=== PATIENT | female | born 1990 | race Caucasian/White ===

== ENCOUNTER 2022-11-21 19:38 | Emergency (ER) | payer OTHER ==
[2022-11-21] MEDS ORDERED: NA CHLORIDE 0.9% 2,000 ML ONE (22:04)
[2022-11-21] MEDS ORDERED: PROMETHAZINE INJ 25 MG/ML AMP ONE (22:04)
[2022-11-21 22:17] LABS: Urine Blood Negative (Negative); Urine Glucose Negative (Negative); Urine Protein 1+ (Negative); Urine Specific Gravity >=1.030 (1.005-1.030)
[2022-11-21 22:39] LABS: Absolute Lymphocytes (CBC) 2.4 K/uL (0.7-4.9); Hematocrit 37.2 % (36.0-45.0); Lymphocytes % 19.6 % (15.3-44.8); MCV 87.5 fL (80-100); MPV 9.6 fL (7.6-11.3); RBC Red Blood Cell Count 4.25 M/uL (3.86-4.86)
[2022-11-21 22:48] LABS: Potassium 3.6 mmol/L (3.5-5.1)
[2022-11-21 23:28] LABS: Urine Specific Gravity/Preg >1.030 (1.005-1.030)
--- NOTE | 2022-11-22 01:24 | ER ---
Nurse's Notes [facility] Name: Keily Franz Age: 32 yrs Sex: Female : 1990 Arrival Date: 11/21/2022 Time: 19:40 Bed Treatment Private MD: Diagnosis: Volume depletion, unspecified;Nausea with vomiting, unspecified Presentation: 11/21 21:15 Chief complaint: Patient states: she is 19 weeks and has been vomiting x 2 bb days unable to hold anything down has tried Zofran but vomited it up too. Coronavirus screen: At this time, the client does not indicate any symptoms associated with coronavirus-19. Ebola Screen: No symptoms or risks identified at this time. Initial Sepsis Screen: Does the patient meet any 2 criteria? No. Patient's initial sepsis screen is negative. Does the patient have a suspected source of infection? No. Patient's initial sepsis screen is negative. Risk Assessment: Do you want to hurt yourself or someone else? Patient reports no desire to harm self or others. Onset of symptoms was November 19, 2022. 21:15 Method Of Arrival: Ambulatory bb 21:15 Acuity: CATIE 3 bb Triage Assessment: 21:17 General: Appears in no apparent distress. Behavior is calm, cooperative. bb 21:18 Neuro: Level of Consciousness is awake, alert, obeys commands, Oriented to person, bb place, time, situation. Cardiovascular: Capillary refill < 3 seconds Patient's skin is warm and dry. Respiratory: Respiratory effort is unlabored. GI: Abdomen is round Reports intolerance of fluids, intolerance of food, vomiting. Derm: Skin is pink, warm \\T\\ dry. Musculoskeletal: Circulation, motion, and sensation intact. 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 - Social history:: Smoking status: Patient denies any tobacco usage or history of. Screenin:22 [facility] ED Fall Risk Assessment (Adult) History of falling in the last 3 months, tw5 including since admission. Abuse screen: Denies threats or abuse. Denies injuries from another. Abuse screen: Denies threats or abuse. Nutritional screening: No deficits noted. Tuberculosis screening: No symptoms or risk factors identified. Assessment: 22:22 General: Appears in no apparent distress. Behavior is calm, cooperative, appropriate tw5 for age, Reports "I have been nauseous the whole but the last two days have been worse. I knew it was bad when I was not able to even keep any water or saltine crackers down.". Pain: Denies pain. Neuro: No deficits noted. Cardiovascular: Capillary refill < 3 seconds is brisk in bilateral fingers. Respiratory: Airway is patent Trachea midline Respiratory effort is even, unlabored. GI: Reports intolerance of fluids, nausea, vomiting. GI: Abdomen is non-distended, Bowel sounds present X 4 quads. Derm: No deficits noted. 23:25 Reassessment: Patient states feeling better. Patient states symptoms have improved. tw5 11/22 01:33 Reassessment: Patient states feeling better. Patient states symptoms have improved. tw5 Vital Signs: 11/21 21:15 BP 122 / 81; Pulse 90; Resp 16 S; Temp 98.9(O); Pulse Ox 100% on R/A; Weight 104.33 kg bb (R); Height 5 ft. 2 in. (157.48 cm) (R); Pain 0/10; 22:22 BP 140 / 67; Pulse 96; Resp 18; Pulse Ox 100% on R/A; tw5 11/22 01:33 BP 119 / 75; Pulse 100; Resp 18; Pulse Ox 100% ; tw5 11/21 21:15 Body Mass Index 42.07 (104.33 kg, 157.48 cm) bb Vitals: 11/21 22:21 Heart Tones 160. tw5 ED Course: 19:40 Patient arrived in ED. jj6 19:45 Gay Pinon FNP-C is PHCP. snw 19:45 Leyla Yeh MD is Attending Physician. snw 21:17 Triage completed. bb 21:18 Arm band placed on Patient placed in waiting room, Patient notified of wait time. bb Family accompanied patient. 21:44 Mirna Villar is Primary Nurse. tw5 22:15 Abo/rh Typing Sent. tw5 22:15 Basic Metabolic Panel Sent. tw5 22:15 CBC with Diff Sent. tw5 22:15 Initial lab(s) drawn, by me, sent to lab. Urine collected: clean catch specimen. tw5 Inserted saline lock: 20 gauge in left antecubital area, using aseptic technique. Blood collected. 22:22 Awaiting lab results. tw5 22:22 Patient has correct armband on for positive identification. Placed in gown. Bed in low tw5 position. Call light in reach. Side rails up X 1. Adult w/ patient. Pulse ox on. NIBP on. Door closed. Noise minimized. Lights dimmed. Moved to private room. Warm blanket given. Verbal reassurance given. 23:16 Abo/rh Typing Sent. bb 11/22 00:31 No provider procedures requiring assistance completed. 01:33 IV discontinued, intact, bleeding controlled, No redness/swelling at site. Pressure tw5 dressing applied. Administered Medications: 11/21 22:16 Drug: NS 0.9% 1000 ml Route: IV; Rate: 1 bolus; Site: left antecubital; tw5 11/22 00:30 Follow up: Response: No adverse reaction; IV Status: Completed infusion; IV Intake: tw5 1000ml 11/21 22:16 Drug: NS 0.9% 1000 ml Route: IV; Rate: 1 bolus; Site: left antecubital; tw5 11/22 00:30 Follow up: Response: No adverse reaction; IV Status: Completed infusion; IV Intake: tw5 1000ml 11/21 22:17 Drug: Phenergan (promethazine) 25 mg Route: IM; Site: left ventrogluteal; tw5 11/22 00:30 Follow up: Response: No adverse reaction; Nausea is decreased tw Medication: 11/21 22:22 VIS not applicable for this client. tw Intake: 11/22 00:30 IV: 1000ml; Total: 1000ml. 00:30 IV: 1000ml; Total: 2000ml. tw Outcome: 01:23 Discharge ordered by MD. prieto 01:33 Discharged to home ambulatory, with family. :33 Condition: improved 01:33 Discharge instructions given to patient, Instructed on discharge instructions, follow up and referral plans. medication usage, Demonstrated understanding of instructions, follow-up care, medications, Prescriptions given X 1. 01:33 Patient left the ED. tw5 Signatures: Gay Pinon, BOX ICER-C BOX ICER-Csnw Татьяна Hartley RN RN Mirna Mustafa tw5 Nohemy Love jj6
--- NOTE | 2022-11-22 01:24 | EDPHYS ---
Physician Documentation [facility] Name: Keily Franz Age: 32 yrs Sex: Female : 1990 Arrival Date: 11/21/2022 Time: 19:40 Bed Treatment Private MD: ED Physician Leyla Yeh HPI: 11/21 21:57 This 32 yrs old Female presents to ER via Ambulatory with complaints of 19 WKS snw Gestation, Nausea/Vomiting. 21:57 Onset: The symptoms/episode began/occurred acutely. Associated signs and symptoms: The snw patient has no apparent associated signs or symptoms. Modifying factors: The patient symptoms are alleviated by nothing, the patient symptoms are aggravated by nothing. The patient has experienced a previous episode. The patient has been recently seen by a physician: with similar presenting complaints, was given a prescription for an antiemetic, and was sent to the [facility] for further evaluation. pt taking zofran and diclegis, continues vomiting. 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 - Social history:: Smoking status: Patient denies any tobacco usage or history of. ROS: 21:56 Constitutional: Negative for fever, chills, and weight loss, Eyes: Negative for injury, snw pain, redness, and discharge, ENT: Negative for injury, pain, and discharge, Neck: Negative for injury, pain, and swelling, Cardiovascular: Negative for chest pain, palpitations, and edema, Respiratory: Negative for shortness of breath, cough, wheezing, and pleuritic chest pain, Back: Negative for injury and pain, : Negative for injury, bleeding, discharge, and swelling, MS/Extremity: Negative for injury and deformity, Skin: Negative for injury, rash, and discoloration, Neuro: Negative for headache, weakness, numbness, tingling, and seizure, Psych: Negative for depression, anxiety, suicide ideation, homicidal ideation, and hallucinations. 21:56 Abdomen/GI: Positive for nausea, vomiting. Exam: 21:54 Constitutional: This is a well developed, well nourished patient who is awake, alert, snw and in no acute distress. Head/Face: Normocephalic, atraumatic. Eyes: Pupils equal round and reactive to light, extra-ocular motions intact. Lids and lashes normal. Conjunctiva and sclera are non-icteric and not injected. Cornea within normal limits. Periorbital areas with no swelling, redness, or edema. 21:54 Neck: Trachea midline, no thyromegaly or masses palpated, and no cervical lymphadenopathy. Supple, full range of motion without nuchal rigidity, or vertebral point tenderness. No Meningismus. Chest/axilla: Normal chest wall appearance and motion. Nontender with no deformity. No lesions are appreciated. 21:54 Respiratory: Lungs have equal breath sounds bilaterally, clear to auscultation and percussion. No rales, rhonchi or wheezes noted. No increased work of breathing, no retractions or nasal flaring. Back: No spinal tenderness. No costovertebral tenderness. Full range of motion. MS/ Extremity: Pulses equal, no cyanosis. Neurovascular intact. Full, normal range of motion. Neuro: Awake and alert, GCS 15, oriented to person, place, time, and situation. Cranial nerves II-XII grossly intact. Motor strength 5/5 in all extremities. Sensory grossly intact. Cerebellar exam normal. Normal gait. Psych: Awake, alert, with orientation to person, place and time. Behavior, mood, and affect are within normal limits. 21:54 ENT: Mouth: Oral mucosa: dry, Voice: is normal. 21:54 Cardiovascular: Rate: tachycardic, Rhythm: regular. 21:54 Abdomen/GI: Inspection: gravid appearance, is noted, Bowel sounds: normal. 21:54 Skin: Turgor: is poor. Vital Signs: 21:15 BP 122 / 81; Pulse 90; Resp 16 S; Temp 98.9(O); Pulse Ox 100% on R/A; Weight 104.33 kg bb (R); Height 5 ft. 2 in. (157.48 cm) (R); Pain 0/10; 22:22 BP 140 / 67; Pulse 96; Resp 18; Pulse Ox 100% on R/A; tw5 11/22 01:33 BP 119 / 75; Pulse 100; Resp 18; Pulse Ox 100% ; tw5 11/21 21:15 Body Mass Index 42.07 (104.33 kg, 157.48 cm) bb MDM: 11/21 21:33 Patient medically screened. snw 11/22 01:23 Data reviewed: vital signs, nurses notes. Data interpreted: Pulse oximetry: on room air snw is 100 %. Interpretation: normal. Response to treatment: the patient's symptoms have markedly improved after treatment. Special discussion: I have referred the patient to see his PCP for further evaluation of high blood pressure. Based on the history and exam findings, there is no indication for further emergent testing or inpatient evaluation. I discussed with the patient/guardian the need to see the OB Gyne specialist for further evaluation of the symptoms. I discussed with the patient/guardian the need to see the primary care provider for further evaluation of the symptoms. 11/21 21:33 Order name: Abo/rh Typing; Complete Time: 23:21 snw 11/21 21:33 Order name: Basic Metabolic Panel; Complete Time: 22:48 snw 11/21 21:33 Order name: CBC with Diff; Complete Time: 22:44 snw 11/21 22:17 Order name: Urine Dipstick-Ancillary; Complete Time: 22:19 EDMS 11/21 23:15 Order name: Urine --Ancillary (enter results); Complete Time: 23:28 wm 11/21 21:33 Order name: IV Saline Lock; Complete Time: 22:15 snw 11/21 21:33 Order name: Labs collected and sent; Complete Time: 22:15 snw 11/21 21:33 Order name: NPO; Complete Time: 22:10 snw 11/21 21:33 Order name: Urine Dipstick-Ancillary (obtain specimen); Complete Time: 22:10 snw 11/21 21:33 Order name: FHT's; Complete Time: 22:21 snw 11/22 00:26 Order name: PO challenge; Complete Time: 00:30 snw Administered Medications: 11/21 22:16 Drug: NS 0.9% 1000 ml Route: IV; Rate: 1 bolus; Site: left antecubital; tw5 11/22 00:30 Follow up: Response: No adverse reaction; IV Status: Completed infusion; IV Intake: tw5 1000ml 11/21 22:16 Drug: NS 0.9% 1000 ml Route: IV; Rate: 1 bolus; Site: left antecubital; tw5 11/22 00:30 Follow up: Response: No adverse reaction; IV Status: Completed infusion; IV Intake: tw5 1000ml 11/21 22:17 Drug: Phenergan (promethazine) 25 mg Route: IM; Site: left ventrogluteal; 11/22 00:30 Follow up: Response: No adverse reaction; Nausea is decreased tw5 Disposition Summary: 11/22/22 01:23 Discharge Ordered Location: Home snw Condition: Stable snw Diagnosis - Volume depletion, unspecified snw - Nausea with vomiting, unspecified snw Followup: snw - With: Private Physician - When: 2 - 3 days - Reason: Recheck today's complaints, Continuance of care, Re-evaluation by your physician Followup: snw - With: Emergency Department - When: As needed - Reason: Worsening of condition Discharge Instructions: - Discharge Summary Sheet snw - Dehydration, Adult snw - Nausea and Vomiting, Adult snw - Rehydration, Adult snw Forms: - Medication Reconciliation Form snw - Thank You Letter snw - Antibiotic Education snw - Prescription Opioid Use snw Prescriptions: - promethazine 25 mg Rectal suppository - insert 1 suppository by RECTAL route every 6 hours; 12 suppository; Refills: 0, snw Product Selection Permitted Signatures: Dispatcher [employer] Gay Sagastume, HERI TUBE TURNER-[place] Татьяна Hartley, RN RN Mirna Mustafa tw5
[2022-11-22 01:47] VITALS: TEMP 98.9; O2SAT 100
[2022-11-22 01:58] VITALS: BP 119/75
== END 2022-11-22 01:33 | disposition home or self-care (01) ==
LOC: ER 19:38
DX: O99.282 Endocrine, nutritional and metabolic diseases complicating pregnancy, second trimester (principal); E86.9 Volume depletion, unspecified; O21.9 Vomiting of pregnancy, unspecified; Z3A.19 19 weeks gestation of pregnancy; Z88.5 Allergy status to narcotic agent
CPT/HCPCS: 96361; 85025; 80048; 36415; 86900; 81025; 86901; 81003; 96360; 96372; 99284; J2550; J7030